=== PATIENT | female | born 1990 | race Caucasian/White ===

== ENCOUNTER 2021-03-19 10:42 | Emergency (ER) | payer OTHER, SELFPAY ==
[2021-03-19 10:44] VITALS: BP 121/78; PULSE 73; RESP 18; TEMP 36.3; O2SAT 100; BMI 20.2
--- NOTE | 2021-03-19 11:20 | EDS_ITS ---
HPI History of Present Illness Chief Complaint: Nausea/Vomiting Narrative Narrative: 30-year-old female presenting with nausea, vomiting. She states he has been nauseous throughout her which has been worse over the last 24 hours. She has tried Diclegis which is not effective. She states she vomited multiple times yesterday and this morning and feels dehydrated. She has not had a fever. She denies urinary symptoms. She has no abdominal pain. She is not had any vaginal bleeding or loss of fluid. PFSH PFSH Home Medications 1 tab OTHER DAILY 03/19/21 [History Last Taken Unknown] ondansetron 4 mg PO Q8H PRN PRN #10 tab 03/19/21 [Rx Last Taken Unknown] Allergy/AdvReac Type Severity Reaction Status Date / Time No Known Allergies Allergy Verified 03/19/21 10:45 Social History Smoking Status: Never smoker ROS ROS ED Constitutional Constitutional ED: Denies chills or fever(s) Eyes Eyes: Denies blurry vision or diplopia ENT ENT ED: Denies rhinorrhea or sore throat Cardiovascular Cardiovascular: Denies chest pain or palpitations Respiratory/Chest Respiratory/Chest: Denies cough or dyspnea Gastrointestinal Gastrointestinal: Reports nausea and vomiting; Denies abdominal pain Genitourinary Genitourinary ED: Denies dysuria or hematuria Musculoskeletal Musculoskeletal: Denies arthralgias or myalgias Integumentary Denies abscess or rash Neurologic Neurologic: Reports headache(s); Denies paresthesias EXAM Physical Exam Const Vital Signs: 03/19/21 10:44 Temperature 97.3 F L Temperature Source Temporal Pulse Rate 73 Respiratory Rate 18 Blood Pressure 121/78 H Blood Pressure Mean 92 Pulse Ox 100 Oxygen Delivery Method Room Air Positive well nourished General Appearance ED: NAD HEENT Reports moist mucous membranes Negative for trauma Eyes PERRL and EOMs intact bilaterally Resp normal respiratory effort and clear to auscultation bilaterally Cardio regular rate and regular rhythm GI normal to inspection, nondistended, normoactive bowel sounds Neuro oriented x3 and CN's II-XII intact bilaterally Sensorium / Orientation: alert Psych mental status grossly normal MDM MDM MDM Narrative Medical decision making narrative: Patient presenting with nausea and vomiting. I did check a urinalysis which is not consistent with infection it is slightly contaminated however. She does have urine ketones which is consistent with her nausea and vomiting. Her lab work shows a slight leukocytosis of 11.6 otherwise her hemoglobin hematocrit are stable. LFTs and lipase are normal. Renal function and electrolytes are normal. Patient given IV fluids but refused Zofran. She feels improved currently. She requests prescription for Zofran just in case. This was provided. Impression: 1 hyperemesis gravidarum Lab Data Labs: Laboratory Results - last 24 hr 03/19/21 03/19/21 03/19/21 11:35 11:55 11:55 WBC 11.6 H RBC 4.21 Hgb 12.6 Hct 37.5 MCV 89.1 MCH 29.9 MCHC 33.6 RDW Std Deviation 41.1 RDW Coeff of Jarvis 12.7 Plt Count 215 MPV 9.6 Immature Gran % (Auto) 0.300 Neut % (Auto) 74.2 H Lymph % (Auto) 18.1 L [place] % (Auto) 5.6 Eos % (Auto) 1.5 Baso % (Auto) 0.3 Absolute Neuts (auto) 8.6 H Absolute Lymphs (auto) 2.10 Nucleated RBC % 0 Sodium 136 Potassium 3.7 Chloride 102 Carbon Dioxide 24.0 Anion Gap 10 BUN 11 Creatinine 0.60 Estim Creat Clear Calc 113.95 Est GFR (MDRD) Af Amer 152 Est GFR (MDRD) Non-Af 126 BUN/Creatinine Ratio 18.3 Glucose 78 Calcium 9.1 Total Bilirubin 0.50 AST 20 ALT 19 Alkaline Phosphatase 44 L Total Protein 7.9 Albumin 3.5 Globulin 4.4 H Albumin/Globulin Ratio 0.8 L Urine Color Yellow Urine Clarity Sl. Cloudy Urine pH 5.0 Ur Specific [place] 1.025 Urine Protein 30 H Urine Glucose (UA) Normal Urine Ketones 150 A* Urine Occult Blood Negative Urine Nitrite Negative Urine Bilirubin Negative Urine Urobilinogen Normal Ur Leukocyte Esterase 25 H Urine RBC 0 SEEN Urine WBC 0-5 SEEN Ur Squamous Epith Cells 25-50 SEEN Urine Bacteria 1+ Urine Mucus 0 SEEN Discharge Plan Triage Chief Complaint: Nausea/Vomiting ED Provider: Lester Sorenson Dx/Rx/DC Orders Instructions: ED Hyperemesis Gravidarum Prescriptions: New ondansetron 4 mg tablet,disintegrating 4 mg PO Q8H PRN PRN (Reason: Nausea) Qty: 10 RF: 0 No Action 1 tab OTHER DAILY RF: 0 Primary Care Provider: Care Physician,No Primary Referrals: Care Physician,No Primary [Primary Care Provider] - Disposition Disposition: Home, Self Care
[2021-03-19 11:38] LABS: Mucous, Urine 0 SEEN /hpf (<or=2+); Red Blood Cells-Urine 0 SEEN /hpf (0-5)
[2021-03-19 11:40] LABS: Color, Urine Yellow (Yellow); Glucose, Dipstick Normal (Normal); Ketone-Dipstick 150 mg/dl (Negative); Leukocyte Esterase-Dipstick 25 /ul (Negative); Nitrite-Dipstick Negative (Negative); Occult Blood-Urine Negative /ul (Negative); Protein-Dipstick 30 mg/dl (Negative); Specific Gravity, Urine 1.025 (1.002-1.030); Urine Bilirubin Dipstick Negative (Negative); Urine Clarity Sl. Cloudy (Clear); Urine Urobilinogen Normal (Normal)
[2021-03-19 11:48] LABS: Squamous Epithelial Cells - UA 25-50 SEEN /hpf (5-10)
[2021-03-19 11:49] LABS: Bacteria 1+ /hpf (None Seen); White Blood Cells 0-5 SEEN /hpf (0-5)
[2021-03-19 12:05] LABS: Absolute Neutrophil Count 8.6 X10^3/uL (2.0-7.7); Basophil# 0.03 X10^3/uL; Basophil% 0.3 % (0-1); Eosinophil# 0.17 X10^3/uL; Eosinophils% 1.5 % (0-5); Hematocrit 37.5 % (37-47); Hemoglobin 12.6 g/dL (12.0-15.0); Lymphocyte % 18.1 % (19-41); Mean Corp Hgb Conc 33.6 g/dL (32-36); Mean Corpuscular Hgb 29.9 pg (27.0-32.0); Mean Corpuscular Volume 89.1 fL (81-99); Mean Platelet Vol. 9.6 fl (6.2-12.0); Monocyte# 0.65 X10^3/uL; Monocyte% 5.6 % (0-10); NRBC Flagged by Analyzer 0 % (0-5); Neutrophil # 8.62 X10^3/uL (2.7-7.7); Neutrophil % 74.2 % (47-70); Platelet Count 215 K/mm3 (150-450); RBC Distribution Width CV 12.7 % (11.6-14.6); RBC Distribution Width SD 41.1 fl (35.1-43.9); Red Blood Count 4.21 M/mm3 (4.2-5.4); White Blood Count 11.6 K/mm3 (4.4-11.0)
[2021-03-19] MEDS: 0.9% Normal Saline 1,000 ML 999 ML IV (12:19)
[2021-03-19 12:20] LABS: ALB/GLOB Ratio 0.8 RATIO (0.9-2.4); AST(SGOT) 20 U/L (15-37); Alanine Aminotransfer ALT/SGPT 19 U/L (13-56); Albumin, Serum 3.5 g/dL (3.2-5.0); Alkaline Phosphatase 44 U/L (45-117); Anion Gap 10 (5-15); BUN 11 mg/dL (7-18); BUN/Creat Ratio 18.3 RATIO (10-20); Calcium,Total 9.1 mg/dL (8.5-10.1); Chloride 102 mmol/L (98-107); EST Glomerular Filtration Rate 126 mL/min (>60); Est Glom Filt Rate - Afr Amer 152 mL/min (>60); Estimated Creatinine Clearance 113.95 ml/min; Globulin 4.4 g/dL (2.2-4.2); Glucose 78 mg/dL (74-106); Potassium 3.7 mmol/L (3.5-5.1); Protein, Total 7.9 g/dL (6.4-8.2); Sodium Level 136 mmol/L (136-145)
--- NOTE | 2021-03-19 12:29 | ED.RN ---
This RN was at bedside hanging fluids on patient. Patients was sitting in the chair and states i think i'm blacking out Pt appear pale/greenish in color. This nurse assisted patient to the floor and called for help. Multiple RN's came to bedside. Pt then loss consciousness BP 91/54 with a HR of 42. LOC for approximately 2 minutes then patient opened his eyes and started profusely vomiting on self and floor. Pt then states he feels better, staff insisted patient get on the cot and get to a room for further assessment. he reluctantly agreed. Pt was assisted into ED cot and taken to room 7. BP 109/61 with HR 61. Pt continuously stating he feels better. He is now refusing to be checked in. He is a&0X3. Color is pink, he denies nausea. He was given Gatorade.
--- NOTE | 2021-03-19 13:37 | CM.ED ---
SW Note Referral Source: Case Find Referral Reason: No Primary Care Physician (PCP) SW reviewed chart and noted that patient has no PCP. SW provided patient with list of [facility] and [facility] Physician List for reference. SW also provided patient with handout ?Where to go When?. No other issues or concerns voiced at this time. SW remains available for any additional needs. Plan: Provided patient with PCP information Joana KENDRICK
== END 2021-03-19 14:12 | disposition home or self-care (01) ==
PROVIDERS: Emergency Provider Student in an Organized Health Care Education/Training Program
DX: O21.0 Mild hyperemesis gravidarum (principal); Z3A.00 Weeks of gestation of pregnancy not specified
CPT/HCPCS: 80053; 81001; 85025; 99282; J7030; A4216; J2405

== ENCOUNTER 2024-03-17 15:39 | Inpatient (IN) | payer OTHER, SELFPAY ==
[2024-03-17] VITALS (29 sets, daily range): BP systolic 92–140; BP diastolic 55–84; PULSE 71–101; RESP 16–19; TEMP 36.4–37.3; O2SAT 80–100; BMI 26.8
[2024-03-17] MEDS: Lactated Ringers 1,000 ML 50 ML IV (16:25)
[2024-03-17 16:26] LABS: Absolute Lymphocyte Count 1.99 X10^3/uL (0.83-4.51); Absolute Neutrophil Count 11.9 X10^3/uL (2.0-7.7); Basophil# 0.06 X10^3/uL; Basophil% 0.4 % (0-1); Eosinophil# 0.13 X10^3/uL; Eosinophils% 0.9 % (0-5); Hematocrit 38.8 % (37-47); Hemoglobin 13.1 g/dL (12.0-15.0); Lymphocyte # 1.99 X10^3/ul (0.83-4.51); Lymphocyte % 13.2 % (19-41); Mean Corp Hgb Conc 33.8 g/dL (32-36); Mean Corpuscular Hgb 30.8 pg (27.0-32.0); Mean Corpuscular Volume 91.3 fL (81-99); Mean Platelet Vol. 10.5 fl (6.2-12.0); Monocyte# 0.91 X10^3/uL; NRBC Flagged by Analyzer 0 % (0-5); Neutrophil # 11.94 X10^3/uL (2.7-7.7); Neutrophil % 79.1 % (47-70); Platelet Count 203 K/mm3 (150-450); RBC Distribution Width CV 12.6 % (11.6-14.6); RBC Distribution Width SD 41.2 fl (35.1-43.9); Red Blood Count 4.25 M/mm3 (4.2-5.4); White Blood Count 15.1 K/mm3 (4.4-11.0)
[2024-03-17] MEDS: Penicillin G Pot 5,000,000 UNITS in 0.9% Normal Saline (100mL MB+) 100 ML 150 UNITS IV (16:26)
--- NOTE | 2024-03-17 16:34 | HP.PCM.OB_ITS ---
HPI - General General Date of Admission: 03/17/24 HPI Narrative AFTAB GONZALEZ, is a 33 F at 39.1 weeks gestation who presents with spontaneous rupture of membranes around noon today for clear fluid. Previous delivery was via section for arrest of descent. Patient has been counseled throughout on TOLAC and Repeat section. She is aware that she is not an ideal candidate for TOLAC. She desires TOLAC. Maternal Data Information [place] Calculator Estimated Delivery Date Method Current WG Current Estimate 03/23/24 Manual 39w 1d PFSH PFSH Medical History (Updated 03/17/24 @ 16:50 by Tonja Quezada CNM) Polyhydramnios Home Medications ?Medication ?Instructions ?Recorded ?Last Taken ?Type 1 tab OTHER DAILY 03/19/21 03/17/24 History ondansetron 4 mg disintegrating 4 mg PO Q8H PRN PRN Nausea #10 tabs 03/19/21 Unknown Rx tablet diphenhydramine HCl 50 mg/30 mL 25 mg PO QHS sleep aid 03/17/24 03/16/24 History oral liquid (NightTime Sleep Aid (diphenhydramine)) ferrous sulfate 325 mg (65 mg 325 mg PO QODAY anemia 03/17/24 03/17/24 History iron) tablet (iron) magnesium 200 mg tablet 50 mg PO DAILY 03/17/24 03/16/24 History Allergy/AdvReac Type Severity Reaction Status Date / Time No Known Allergies Allergy Verified 03/17/24 15:49 Family History no significant family his Surgical History (Updated 03/17/24 @ 16:43 by Tonja Quezada CNM) [place] teeth extracted Previous section Social History Smoking Status: Never smoker History Elective abortions Hx Para 1 Spontaneous abortions Hx # Term Pregnancies Ectopic pregnancies Hx # Pregnancies Multiple births # of living children NST FHR Rate Baby A Baseline: 125 Variability:: Moderate Accelerations:: 15 x 15 Decelerations:: None NST Reactive:: Yes FHR Category:: Category I FHR Rate Baby B Uterine Activity:: 1-3 minutes ROS Eyes Eyes: Denies blurry vision, change in vision or spots in vision ENT HEENT: Denies dizziness or headache(s) Cardiovascular Cardiovascular: Denies abdominal pain, chest pain or dyspnea Respiratory/Chest Respiratory/Chest: Denies cough, dyspnea, shortness of breath at rest or shortness of breath with exertion Gastrointestinal Gastrointestinal: Denies abdominal pain, diarrhea or vomiting Genitourinary Genitourinary: Denies change in urinary stream, difficulty urinating or dysuria Musculoskeletal Musculoskeletal: Reports none Integumentary Integumentary: Denies rash Neurologic Neurologic: Denies dizziness, headache(s), memory loss or weakness Psychiatric Psychiatric: Reports none Vital Signs Vital Signs Vital Signs: 03/17/24 15:38 03/17/24 15:38 03/17/24 15:39 Temperature Temperature Source Pulse Rate 76 Respiratory Rate Blood Pressure 123/79 H BP Systolic 123 BP Diastolic 79 Pulse Ox 98 03/17/24 15:39 03/17/24 15:41 03/17/24 15:41 Temperature Temperature Source Temporal Pulse Rate 71 Respiratory Rate 16 Blood Pressure BP Systolic BP Diastolic Pulse Ox 03/17/24 15:41 03/17/24 15:43 03/17/24 15:43 Temperature 99.1 F Temperature Source Pulse Rate 72 Respiratory Rate Blood Pressure BP Systolic BP Diastolic Pulse Ox 99 Weight Weight: 151 lb 4 oz Body Mass Index (BMI) 26.8 Physical Exam Const alert, oriented x3 and no apparent distress General Appearance: cooperative Orientation / Consciousness: awake Exam Limitations: no limitations HEENT normocephalic Head and Scalp: normal to inspection Eyes General Eye: normal appearance of both eyes Neck full ROM and no lymphadenopathy Lymph Lymphatic: no lymphadenopathy noted Chest inspection of chest normal Resp normal respiratory effort, normal air movement and clear to auscultation bilaterally Effort and Inspection: able to speak in complete sentences and symmetric chest movement Cardio regular rate and regular rhythm GI normal to inspection, nondistended, normoactive bowel sounds Manual OB Exam: presentation cephalic, dilated 3.5-4cm, effaced 70 and station -3 and 0 Amniotic Fluid: clear amniotic fluid Back/Spine normal ROM Extremity full ROM and no calf tenderness Skin no rashes or lesions noted General Skin Exam: no breakdown Neuro oriented x3 and CN's II-XII intact bilaterally Psych mental status grossly normal and thought process normal Labs Labs Labs: Antibody Screen Pending Hct 38.8 % (37-47) Hgb 13.1 g/dL (12.0-15.0) Syphilis Total Ab Pending Assessment & Plan (1) Previous section complicating : (2) 39 weeks gestation of : (3) Spontaneous rupture of amniotic membranes: (4) Desires vaginal after trial: (5) Positive GBS test: (6) Polyhydramnios: COMMENT: this PLAN: Plan 3.5-4cm/ 70/-3 posterior Clear fluid noted Discussed plan of care with patient which desires trial of labor at this time despite being told she is not an ideal candidate GBS positive- Start PCN IV now and continue throughout labor and delivery Dr. Tejeda notified and is collaboration physician- in route to talk with patient
[2024-03-17] MEDS: fentaNYL-bupivacaine (epidural) 100 ML BAG EPIDURAL (18:10)
[2024-03-17] MEDS: Cefazolin 2 GM in 0.9% Normal Saline (100mL Bag) 100 ML IV (18:56)
[2024-03-17] MEDS: Azithromycin 500 MG in Dextrose 5%-Water (250mL Bag) 250 ML 250 MG IV (19:03)
[2024-03-17] MEDS: Oxytocin 15 Units/NS 250ml 15 UNITS/250 ML IV.SOLN 83 UNITS IV (20:10)
--- NOTE | 2024-03-17 20:16 | PLAC_PTH ---
PATIENT: AFTAB GONZALEZ LOC: WP U#:[id number] AGE/SX: 33/F ROOM: WP008 RE03/17/[address]: Tonja Quezada CNM : 1990 BED: 1 DIS: 03/19/2024 SPEC #: [id number] RECD: 03/18/24 00:44 STATUS: KRANTHI REHector #: [id number] TYRONE: 03/17/24 20:[address]: Tonja Quezada DEPT: SURGICAL PATHOLOGY RECD BY: Mary Vazquez ENTERED: 03/18/24 07:35 SP TYPE: PLACENTA OTHR DR: No Primary Care Phys Tissues: Placenta, NOS Procedures: Surgery Specimen Level V HEADER OPERATION: section PRE-OP DIAGNOSIS: intolerance labor TISSUE SUBMITTED: Placenta MICROSCOPIC DIAGNOSIS Placenta: Placental disc - third trimester placenta (514 gm). * Focal areas of intraparenchymal hemorrhage (largest measuring 2.0cm in greatest dimension) Membranes - no pathologic diagnosis. Umbilical cord - three blood vessels, long umbilical cord (66cm in length and increased spiraling) SJ: 03/22/2024 MICROSCOPIC DESCRIPTION Slides are reviewed. GROSS DESCRIPTION SPECIMEN: PLACENTA / CLINICAL INFORMATION: A. Weight: 2.83 kg B. Gestational Age: 39 weeks C. Sex: Female PLACENTAL WEIGHT (POST FIXATION): 514 gm PLACENTAL DIMENSIONS: 16.0 x 15.0 x 3.5cm PLACENTAL SHAPE: Usual ovoid PLACENTAL WEIGHT FOR GESTATIONAL AGE: Within 10-99th percentile MEMBRANES - Present A. Insertion: Marginal B. Site of rupture from edge: at the margin of placental disc C. Color of membrane: Hammond-cornejo D. Abnormalities: None UMBILICAL CORD - Present A. Color: Hammond-cornejo B. Insertion: Paracentral C. Length: 66.0 cm D. Diameter: 1.0 cm E. Number of vessels: Three F. Abnormalities: Increased spiraling is noted. PLACENTAL DISC - Present A. Color of surface: Hammond-cornejo B. surface abnormalities: None C. Maternal cotyledons: Intact with minimal tears D. Attached retro placental clot: A few blood clots are noted at the peripheral portion of the placenta. E. Cut surface: Dark red and spongy F. Lesions: Maternal surface shows a hammond-white plaque measuring 1.5cm in greatest dimension. Sections reveal two indurated areas measuring 0.5 and 2.0cm in greatest dimensions. G. Separate clot: No clot SECTIONS SUBMITTED: (6 cassettes) 1. Membrane roll 2. Cord, maternal end, plaque like area on the maternal surface 3. Cord, end, smaller lesion 4. Placental disc, and maternal surfaces, larger lesion 5. Placental disc, and maternal surfaces 6. Placental disc, and maternal surfaces SJ/mr 03/21/2024 TC:5 CPT: 47098
--- NOTE | 2024-03-17 20:25 | PN_ITS ---
Progress Note Delay entry. At bedside to discuss plan of care with patient on admission. Painful with contractions and considering epidural. Assessment & Plan Assessment/Plan (1) 39 weeks gestation of : PLAN: Discussed r/b/a repeat section vs TOLAC on admission. Patient feels she has been well counseled. She understands my recommendation is for a repeat section. Recommend epidural and internal monitors. She has been considering an epidural and discussed with her partner, and desires epidural for pain control after consideration. She is concerned about making labor progress with an epidural, and reassurance given. She is adamant about trying for a vagin al delivery, and still requests a TOLAC. Nursing staff working on getting patient her epidural. (2) Previous section complicating : (3) Spontaneous rupture of amniotic membranes: (4) Desires vaginal after trial: (5) Positive GBS test: (6) Polyhydramnios:
--- NOTE | 2024-03-17 20:29 | PN.OBGYN_ITS ---
Subjective Subjective At bedside to check on pt after epidural. She is getting comfortable with the epidural but having RLQ pain. Otherwise no complaints. Objective Data Objective Data Vital Signs: Vital Signs Temp Pulse Resp BP Pulse Ox 98.5 F 80 18 106/55 L 100 03/17/24 17:24 03/17/24 18:29 03/17/24 17:24 03/17/24 18:29 03/17/24 18:29 Weight: 151 lb 4 oz Body Mass Index (BMI) 26.8 Intake & Output: Intake and Output for Last 24 Hours 03/15/24 03/16/24 03/17/24 23:59 23:59 23:59 Output Total 500 / 500 Balance -500 / -500 Lab / Micro Data 03/17/24 16:05 Labs: Laboratory Results - last 24 hr 03/17/24 16:05: WBC 15.1 H, RBC 4.25, Hgb 13.1, Hct 38.8, MCV 91.3, MCH 30.8, MCHC 33.8, RDW Std Deviation 41.2, RDW Coeff of Jarvis 12.6, Plt Count 203, MPV 10.5, Immature Gran % (Auto) 0.400, Neut % (Auto) 79.1 H, Lymph % (Auto) 13.2 L, [place] % (Auto) 6.0, Eos % (Auto) 0.9, Baso % (Auto) 0.4, Absolute Neuts (auto) 11.9 H, Absolute Lymphs (auto) 1.99, Nucleated RBC % 0, Blood Type A NEGATIVE, Antibody Screen POSITIVE, Antibody Identification ANTI-D Assessment & Plan (1) Polyhydramnios: COMMENT: this (2) Positive GBS test: (3) Desires vaginal after trial: (4) Spontaneous rupture of amniotic membranes: (5) 39 weeks gestation of : PLAN: In room to evaluate patient immediately after a delivery was completed in another room. Cvx 7-8/90/0 on exam after epidural. IUPC unable to be placed passed the baby's head. Category 2 tracing with late, variable, and early decelerations. Discussed with patient recommendation to go to the OR for further evaluation given recurrent heart rate decelerations. Discussed decelerations thought to be due to rapid cervical change at this time, and if she is completely dilated once in OR will try for vaginal delivery if making good progress but will re assess in the OR. Nursing staff placing chao catheter and antibiotics ordered for possible section. See operative report. (6) Previous section complicating :
--- NOTE | 2024-03-17 20:33 | PCM.OPRPT ---
Problems Associated Problem List Diagnoses (1) Polyhydramnios: (2) Positive GBS test: (3) Desires vaginal after trial: (4) Spontaneous rupture of amniotic membranes: (5) 39 weeks gestation of : (6) Previous section complicating : (7) heart rate deceleration, delivered, current hospitalization: (8) intolerance to labor, delivered, current hospitalization: Report of Operation Date of Procedure: 03/17/24 Pre-Operative Diagnosis: 39 week gestation, history prior section, intolerance to labor, history prior section, SROM and labor Post-Operative Diagnosis: As above Surgery/Procedure Performed:: Stat RLTCS Description of Surgical Findings:: Once in the OR the patient was moved to the OR bed. FHT with prolonged heart rate decelerations. Cvx 10/100/0 station and pelvis felt adequate. Patient pushed for 3 contractions with no descent. Discussed r/b/a repeat section, and decision was made for a repeat section given intolerance to labor and no descent with pushing. Patient agreeable to repeat section at this time. VFI in cephalic presentation. Normal appearing uterus, bilateral adnexa, and placenta. Minimal adhesive disease of peritoneal to anterior uterus, and bladder to anterior uterus. Apgars 9, 10. Surgeon: Karlene Tejeda audio tape librarian: Tonja Quezada Type of Anesthesia: Epidural Special Medications: None Specimen's removed: Placenta Drains: Hamm Estimated Blood Loss (mL): 500 Fluids Replaced: 700 Description of Procedure: Patient was prepped and draped for section. Epidural was found to be adequate. A Pfannenstiel skin incision was made with a scalpel and carried down to the underlying layer fascia. The fascia was incised in the midline. The fascial incision was extended bluntly with lateral traction. Nohemi's were placed on the fascia and the fascia was minimally dissected off the rectus muscles in a cephalad direction. The rectus muscles were bluntly. The peritoneum was entered bluntly with good visualization of the bladder. The peritoneal incision was extended with lateral traction. A bladder blade was inserted. A low transverse incision was made on the uterus with the scalpel. The uterine incision was extended with cephalad and caudad traction. The head of the was elevated out of the pelvis and flexed, and delivered through the hysterotomy, followed by the shoulders and body without any force, traction, or delay. The cord was clamped and cut immediately and the was handed off to the awaiting nursery staff. The placenta was removed with manual extraction. The uterus was cleared of all clot and debris. The uterus was exteriorized. A right cervical extension was noted. The hysterotomy and extension were closed with 1-0 Vicryl in a running locked fashion. Several additional [id number] sutures were placed. No uterine rupture was noted however the lower uterine segment was noted to be thin. The uterus was placed back into the abdomen. Hemostasis was confirmed. Satish was placed over the hysterotomy and lower uterine segment. Subfascial space was examined and noted to be hemostatic. The fascia was closed with STRATAFIX in a running fashion. The subcutaneous space was irrigated and made hemostatic with the Bovie cautery. The subcutaneous space was reapproximated 3-0 Vicryl. The skin was closed with 4-0 Monocryl in a subcuticular fashion. A silver dressing was placed. Instrument, sharp, sponge counts were correct and the patient was taken to recovery in stable condition. Tonja Quezada CNM was present for entire case and assisted with draping the patient, delivery of the , and closure. Grafts/Implants Used: None Procedure Start Time: 18:57 Procedure Stop Time: 19:50 Complications None Admit VTE Documentation VTE Present on Admission: No VTE Mechan Device Prophylaxis: SCD's
--- NOTE | 2024-03-17 21:09 | NURSING ---
Epidural catheter removed in OR by Dr. Anne. Blue tip intact.
[2024-03-17] MEDS: Acetaminophen 500 MG Tablet 1000 MG PO (21:31)
[2024-03-17] MEDS: Ketorolac 30 MG/ML Syringe IV (21:31)
[2024-03-18] VITALS (8 sets, daily range): BP systolic 93–115; BP diastolic 54–72; PULSE 68–81; RESP 16; TEMP 36.4–37.1; O2SAT 98–100
[2024-03-18] MEDS: Lactated Ringers 1,000 ML 100 ML IV (00:09)
[2024-03-18 00:51] LABS: Pathology Specimen OB SEE PATHOLOGY REPORT
[2024-03-18] MEDS: Ketorolac 30 MG/ML Syringe IV ×3 (03:05→16:05)
[2024-03-18] MEDS: Acetaminophen 500 MG Tablet 1000 MG PO ×4 (03:06→21:09)
[2024-03-18] MEDS: Cefazolin 1 GM/50 ML BAG IV ×2 (04:00→11:52)
[2024-03-18 06:35] LABS: Hematocrit 30.8 % (37-47); Hemoglobin 10.6 g/dL (12.0-15.0); Mean Corp Hgb Conc 34.4 g/dL (32-36); Mean Corpuscular Hgb 31.4 pg (27.0-32.0); Mean Corpuscular Volume 91.1 fL (81-99); Mean Platelet Vol. 10.3 fl (6.2-12.0); Platelet Count 167 K/mm3 (150-450); RBC Distribution Width CV 12.9 % (11.6-14.6); RBC Distribution Width SD 42.6 fl (35.1-43.9); Red Blood Count 3.38 M/mm3 (4.2-5.4); White Blood Count 17.8 K/mm3 (4.4-11.0)
--- NOTE | 2024-03-18 07:36 | NURSING ---
report given to baldomero RN at this time
[2024-03-18] MEDS: 0.9% Saline Lock 10 ML Syringe IV ×3 (08:41→16:05)
[2024-03-18] MEDS: Senna/Docusate Sodium 1 Tablet PO (08:42)
--- NOTE | 2024-03-18 13:08 | PCM.PN.OB ---
Subjective Subjective Doing well per patient and nursing staff. Ambulating and taking PO without difficulty. Voiding and passing flatus. Pain controlled. , services for assistance. Denies headache, visual changes, chest pain, shortness of breath, leg pain or increased bleeding. Lochia normal. Objective Data Objective Data Vital Signs: Vital Signs Temp Pulse Resp BP Pulse Ox O2 Del Method 97.6 F L 68 16 102/54 L 98 Room Air 03/18/24 12:25 03/18/24 12:03/18/24 12:03/18/24 12:03/18/24 12:03/18/24 12:25 Oxygen Delivery Method Room Air Weight: 151 lb 4 oz Body Mass Index (BMI) 26.8 Intake & Output: Intake and Output for Last 24 Hours 03/16/24 03/17/24 03/18/24 23:59 23:59 23:59 Intake Total 574.07 / 574.07 1223.33 / 1223.33 Output Total 800 / 800 Balance -225.93 / -225.93 1223.33 / 1223.33 Lab / Micro Data 03/18/24 06:10 Labs: Laboratory Results - last 24 hr 03/17/24 16:05: WBC 15.1 H, RBC 4.25, Hgb 13.1, Hct 38.8, MCV 91.3, MCH 30.8, MCHC 33.8, RDW Std Deviation 41.2, RDW Coeff of Jarvis 12.6, Plt Count 203, MPV 10.5, Immature Gran % (Auto) 0.400, Neut % (Auto) 79.1 H, Lymph % (Auto) 13.2 L, [place] % (Auto) 6.0, Eos % (Auto) 0.9, Baso % (Auto) 0.4, Absolute Neuts (auto) 11.9 H, Absolute Lymphs (auto) 1.99, Nucleated RBC % 0, Blood Type A NEGATIVE, Antibody Screen POSITIVE, Antibody Identification ANTI-D 03/18/24 06:10: WBC 17.8 H, RBC 3.38 L, Hgb 10.6 L, Hct 30.8 L, MCV 91.1, MCH 31.4, MCHC 34.4, RDW Std Deviation 42.6, RDW Coeff of Jarvis 12.9, Plt Count 167, MPV 10.3 ROS Constitutional Constitutional: Reports systems reviewed and no addt'l complaints, except as documented; Denies headache(s) Eyes Eyes: Denies acute decrease in peripheral vision, blurry vision or change in vision ENT HEENT: Reports systems reviewed and no addt'l complaints, except as documented Cardiovascular Cardiovascular: Denies chest pain or dizziness Respiratory/Chest Respiratory/Chest: Denies cough, dyspnea, dyspnea on exertion, shortness of breath at rest or shortness of breath with exertion Gastrointestinal Gastrointestinal: Denies abdominal pain, diarrhea, nausea or vomiting Genitourinary Genitourinary: Denies abdominal discomfort Musculoskeletal Musculoskeletal: Denies limited range of motion Integumentary Integumentary: Reports systems reviewed and no addt'l complaints, except as documented Neurologic Neurologic: Reports systems reviewed and no addt'l complaints, except as documented Psychiatric Psychiatric: Reports systems reviewed and no addt'l complaints, except as documented Endocrine Endocrinology: Reports systems reviewed and no addt'l complaints, except as documented Hematologic/Lymphatic Hematologic/Lymphatic: Reports systems reviewed and no addt'l complaints, except as documented Allergic/Immunologic Allergic/Immunologic: Reports systems reviewed and no addt'l complaints, except as documented Physical Exam Const alert and oriented x3 General Appearance: cooperative Orientation / Consciousness: awake, oriented to person, oriented to place and oriented to time Exam Limitations: no limitations HEENT normocephalic Head and Scalp: normal to inspection, normocephalic and atraumatic Face and Sinus: normal facial exam Eyes General Eye: normal appearance of both eyes Neck full ROM Chest Chest: symmetrical chest wall rise Resp normal respiratory effort and normal air movement Auscultation: clear to auscultation bilaterally Cardio regular rate, regular rhythm, S1 normal heart sound, S2 normal heart sound, no murmurs, no rub, no gallops and no clicks GI normal to inspection, nondistended, normoactive bowel sounds and non-tender GI Narrative: Dressing clean and dry appearance of the vagina normal Bladder / Kidney Exam: no CVA tenderness Back/Spine normal ROM Extremity normal to inspection and full ROM Skin no rashes or lesions noted Neuro oriented x3, CN's II-XII intact bilaterally and moves all extremities Sensorium / Orientation: awake, alert and oriented to person Motor Exam: clonus absent Deep Tendon Reflexes: Rt Patellar (L4): 2+ and Lt Patellar (L4): 2+ Assessment & Plan (1) intolerance to labor, delivered, current hospitalization: (2) S/P repeat low transverse : (3) Lactating mother: PLAN: Plan 1) Routine PP care 2) Pain management 3) Vitals stable 4) I&O 5) D/C home
[2024-03-18 15:50] LABS: Syphilis Antibodies Non-reactive
[2024-03-18] MEDS: Ibuprofen 600 MG Tablet PO (21:10)
[2024-03-19] MEDS: Ibuprofen 600 MG Tablet PO ×2 (03:17→09:27)
[2024-03-19] MEDS: Acetaminophen 500 MG Tablet 1000 MG PO ×2 (03:17→09:27)
[2024-03-19 03:19] VITALS: BP 99/58; PULSE 67; RESP 16; TEMP 36.2; O2SAT 99
[2024-03-19] MEDS: Senna/Docusate Sodium 1 Tablet PO (09:27)
[2024-03-19 09:30] VITALS: BP 93/51; PULSE 76; RESP 16; TEMP 36.3; O2SAT 100
--- NOTE | 2024-03-19 11:21 | PCM.PN.OB ---
Subjective Subjective Doing well per patient and nursing staff. Ambulating and taking PO without difficulty. Voiding and passing flatus. Pain controlled. , services for assistance. Denies headache, visual changes, chest pain, shortness of breath, leg pain or increased bleeding. Lochia normal. Objective Data Objective Data Vital Signs: Vital Signs Temp Pulse Resp BP Pulse Ox O2 Del Method 97.3 F L 76 16 93/51 L 100 Room Air 03/19/24 09:30 03/19/24 09:30 03/19/24 09:30 03/19/24 09:30 03/19/24 09:30 03/19/24 09:30 Oxygen Delivery Method Room Air Weight: 151 lb 4 oz Body Mass Index (BMI) 26.8 Intake & Output: Intake and Output for Last 24 Hours 03/17/24 03/18/24 03/19/24 23:59 23:59 23:59 Intake Total 574.07 / 574.07 1273.33 / 1273.33 Output Total 800 / 800 300 / 300 Balance -225.93 / -225.93 973.33 / 973.33 Lab / Micro Data 03/18/24 06:10 Labs: Laboratory Results - last 24 hr 03/17/24 16:05: Syphilis Total Ab Non-reactive ROS Constitutional Constitutional: Reports systems reviewed and no addt'l complaints, except as documented; Denies headache(s) Eyes Eyes: Denies acute decrease in peripheral vision, blurry vision or change in vision ENT HEENT: Reports systems reviewed and no addt'l complaints, except as documented Cardiovascular Cardiovascular: Denies chest pain or dizziness Respiratory/Chest Respiratory/Chest: Denies cough, dyspnea, dyspnea on exertion, shortness of breath at rest or shortness of breath with exertion Gastrointestinal Gastrointestinal: Denies abdominal pain, diarrhea, nausea or vomiting Genitourinary Genitourinary: Denies abdominal discomfort Musculoskeletal Musculoskeletal: Denies limited range of motion Integumentary Integumentary: Reports systems reviewed and no addt'l complaints, except as documented Neurologic Neurologic: Reports systems reviewed and no addt'l complaints, except as documented Psychiatric Psychiatric: Reports systems reviewed and no addt'l complaints, except as documented Endocrine Endocrinology: Reports systems reviewed and no addt'l complaints, except as documented Hematologic/Lymphatic Hematologic/Lymphatic: Reports systems reviewed and no addt'l complaints, except as documented Allergic/Immunologic Allergic/Immunologic: Reports systems reviewed and no addt'l complaints, except as documented Physical Exam Const alert and oriented x3 General Appearance: cooperative Orientation / Consciousness: awake, oriented to person, oriented to place and oriented to time Exam Limitations: no limitations HEENT normocephalic Head and Scalp: normal to inspection, normocephalic and atraumatic Face and Sinus: normal facial exam Eyes General Eye: normal appearance of both eyes Neck full ROM Chest Chest: symmetrical chest wall rise Resp normal respiratory effort and normal air movement Auscultation: clear to auscultation bilaterally Cardio regular rate, regular rhythm, S1 normal heart sound, S2 normal heart sound, no murmurs, no rub, no gallops and no clicks GI normal to inspection, nondistended, normoactive bowel sounds and non-tender GI Narrative: Dressing dry and intact appearance of the vagina normal Bladder / Kidney Exam: no CVA tenderness Back/Spine normal ROM Extremity normal to inspection and full ROM Skin no rashes or lesions noted Neuro oriented x3, CN's II-XII intact bilaterally and moves all extremities Sensorium / Orientation: awake, alert and oriented to person Motor Exam: clonus absent Deep Tendon Reflexes: Rt Patellar (L4): 2+ and Lt Patellar (L4): 2+ Assessment & Plan (1) Lactating mother: (2) S/P repeat low transverse : PLAN: Plan 1)Routine PP care 2) D/C home 3) Pain management 4) Vitals stable 5) I&0 6) D/C home
--- NOTE | 2024-03-19 11:23 | DCINST_ITS ---
Discharge Instructions Diet Discharge Diet: No restrictions Activity May resume sexual activity in: 6 weeks Weight Bearing Status: Full weight bearing Dressing / Incision Call your doctor if your incision/area has: Continuous Slow Oozing, Sudden Increased Bleeding, Increased Pain/ Swelling, Increased Redness, Foul Smelling Discharge and Swelling at the incision site Call your doctor if you observe: Fever of 101 or Higher, Inability to urinate, Inability to have a bowel movement, Using more than 1 pad per hour, Shortness of breath, Dizziness, Fainting spells, Chest pain, Increased palpitations (irregular heartbeat), Calf discomfort and Uncontrolled pain Suture Line Care: Avoid Pulling/Pushing Remove Dressing in: 1 week Cleanse incision/area with: Keep Dressing Clean & Dry Follow Up Care Test Results: Test results from this visit will be discussed in further detail at your follow- up appointment, if applicable. Discharge Plan Admission Admit Date/Time: 03/17/24 15:39 Primary Reason for Your Visit: section Attending Provider: Tonja Quezada Primary Care Provider: Care PhysicianLu Primary Discharge Orders/Prescriptions Prescriptions: New acetaminophen 500 mg Tablet 1,000 mg PO Q6H Qty: 0 0RF ibuprofen 600 mg Tablet 600 mg PO Q6H Qty: 0 0RF Continued 1 tab OTHER DAILY Discontinued ondansetron 4 mg tablet,disintegrating 4 mg PO Q8H PRN PRN (Reason: Nausea) Qty: 10 0RF ferrous sulfate [iron] 325 mg (65 mg iron) tablet 325 mg PO QODAY NightTime Sleep Aid (diphen) 50 mg/30 mL liquid 25 mg PO QHS No Action magnesium 200 mg tablet 50 mg PO DAILY Referrals / Follow Up: Care Physician,Lu Primary [Primary Care Provider] - Disposition Disposition (needs filled in before D/C Order can be placed): Home, Self Care
--- NOTE | 2024-04-19 15:35 | NURSING ---
edited for accuracy of documentation for delivery log. failed . Yaritza Aragon RN
--- NOTE | 2025-02-27 13:37 | NURSING ---
Chart reviewed for accuracy of documentation. Operative Record adjusted to Decision Time 1850 and Surgery Start Time 1856 which match physician and money room teller.
== END 2024-03-19 12:15 | disposition home or self-care (01) | DRG 788 ==
LOC: WPOUT 15:48 → WP 15:48
PROVIDERS: Obstetrics & Gynecology; Admitting Provider Advanced Practice Midwife; Referring Provider Advanced Practice Midwife; Visit Provider Advanced Practice Midwife
DX: O34.211 Maternal care for low transverse scar from previous cesarean delivery (principal); O40.3XX0 Polyhydramnios, third trimester, not applicable or unspecified; O32.4XX0 Maternal care for high head at term, not applicable or unspecified; O42.02 Full-term premature rupture of membranes, onset of labor within 24 hours of rupture; O76 Abnormality in fetal heart rate and rhythm complicating labor and delivery; O99.824 Streptococcus B carrier state complicating childbirth; Z37.0 Single live birth; Z3A.39 39 weeks gestation of pregnancy
CPT/HCPCS: 59025; 59050; 85025; 85027; 86780; 86850; 86870; 86900; 86901; 88307; 99221; J7120; A4216; G0378